=== PATIENT | female | born 1960 | race Caucasian/White ===

== ENCOUNTER 2019-10-11 10:01 | Inpatient (IN) | payer MEDICARE, OTHER ==
[2019-10-12 14:18] VITALS: BP 148/75
--- NOTE | 2019-10-12 14:33 | History & Physical ---
ADMIT DATE: 10/12/2019 CHIEF COMPLAINT: Suicidal ideations. HISTORY OF PRESENT ILLNESS: We have a 59-year-old female with diabetes, hypertension, who was transferred from outside hospital for suicidal ideations. No nausea, vomiting, abdominal pain, or diarrhea. No rectal bleeding or melena. PAST MEDICAL HISTORY: Diabetes, hypertension. PAST SURGICAL HISTORY: None. MEDICATIONS: List reviewed. ALLERGIES: None. SOCIAL HISTORY: Tobacco, IV drugs, ETOH negative. PHYSICAL EXAMINATION: VITAL SIGNS: Temperature is 98.6, ____ and blood pressure 148/75. HEENT: Normocephalic and atraumatic head exam. NECK: Supple. CARDIOVASCULAR: Regular rate and rhythm. LUNGS: Decreased breath sounds. ABDOMEN: Soft, nontender. EXTREMITIES: No edema, cyanosis or clubbing. ASSESSMENT: 1. Suicidal ideations. 2. Diabetes. 3. Hypertension. PLAN: The patient will be continued on diabetic meds. We will continue with supportive care. [facility]# [id number]
[2019-10-12] MEDS: Oxybutynin Chloride 5 mg ER Tab PO SCH (17:30)
[2019-10-13] MEDS: Oxybutynin Chloride 5 mg ER Tab PO SCH ×2 (09:01→17:13)
--- NOTE | 2019-10-13 09:30 | Psychiatric Evaluation ---
DATE OF SERVICE: 10/12/2019 IDENTIFYING DATA: The patient is a 59-year-old woman living with her family. Information obtained by directly interviewing the patient as well as reviewing the admission papers. JUSTIFICATION OF HOSPITALIZATION: The patient is admitted here on a 5150 as being gravely disabled. CHIEF COMPLAINT: "I don't like it here. I need to go home." HISTORY OF PRESENT ILLNESS: This is the first psychiatric hospitalization to this patient who was brought to the Emergency Room at [facility] where the patient has been presenting with acute psychosis such as being and her is in her body and the patient also has been making nonsensical statements and stating that her is possibly the president and she has been investigating. The patient's coping skills at this time are noted to be very poor. The patient prior to the hospitalization is reported to be followed up by a psychiatrist in [place] and is on Abilify. The patient is stating that she has not been taking the medications on a regular basis. Sleep is noted to be poor. Appetite is noted to be fair. PAST PSYCHIATRIC HISTORY: The patient is very guarded and is not giving much of information. MEDICAL HISTORY AND PHYSICAL EXAMINATION: Requested by Dr. Dumont. The patient possibly is diabetic and is on metformin and the patient is morbidly obese. PHYSICAL OR SEXUAL ABUSE HISTORY: None. LEGAL PROBLEMS: None at this time. STRENGTH AND ASSETS: The patient seems to be superficially cooperative and not motivated to get the treatment that she needs. The patient's insight is noted to be very limited at this time. Judgment is also noted to be very poor. MENTAL STATUS EXAMINATION: The patient is a 59-year-old woman, obese, superficially cooperative, lying down in the bed. Eye contact is noted to be poor. Mood is noted to be irritable. Affect is constricted. Mood swings are noted at this time. Speech is noted to be coherent and relevant. The patient has both paranoid as well as grandiose delusions. The patient thinks her is the president and she has been investigating him. The patient is also thinking that she is and her is in her abdomen. The patient is not making much sense. The patient is, however, alert and oriented to time, place, person and situation. Attention span is noted to be fair. Motor activity is noted to be appropriate. Concentration is noted to be fair. However, the patient's short and long-term memory are noted to be fair, but the patient is very guarded and reluctant to give the details of information. The patient at this time is not able to care for self. The patient is denying any suicidal or homicidal ideations. The patient is not ready to be discharged to a lower level of care. DIAGNOSTIC IMPRESSION: AXIS I: Bipolar disorder, mixed, with psychotic symptoms, rule out schizoaffective disorder. AXIS II: None. AXIS III: As per Dr. Dumont. IMMEDIATE TREATMENT PLAN: The patient is going to be restarted on the Abilify that she has been taking outside. The patient is going to be closely monitored. Once stabilized, the patient is going to be discharged to [facility] to be followed up on an outpatient basis. ESTIMATED LENGTH OF STAY: 3-5 days. DISCHARGE CRITERIA: When the patient is no longer a threat to self or others and be able to cope up with the stress. JOB# [id number]
[2019-10-14] MEDS: Oxybutynin Chloride 5 mg ER Tab PO SCH ×2 (09:04→16:00)
--- NOTE | 2019-10-14 09:52 | Progress Notes ---
DATE: 10/14/2019 SUBJECTIVE: Staff was spoken to. The patient is interviewed. Mood is noted to be irritable. Affect is constricted. Coping skills are noted to be extremely poor. The patient's insight and judgment are also noted to be very much impaired. The patient has been reluctant to take the medication. The patient is dropping the medication on the floor. The patient is very argumentative. ASSESSMENT: The patient is still psychotic and not able to contract for safety. PLAN: To continue the patient with the current medications and follow up. JOB# [id number]
[2019-10-15] MEDS: Oxybutynin Chloride 5 mg ER Tab PO SCH ×2 (08:24→17:04)
--- NOTE | 2019-10-15 14:43 | Progress Notes ---
DATE: 10/15/2019 SUBJECTIVE: Staff was spoken to. The patient is interviewed. Mood is noted to be irritable. Affect is constricted. Insight and judgment are noted to be still impaired. Impulse control is noted to be limited. Coping skills are noted to be limited. The patient is stating that this is her business and she does not want to talk anything about where she is going to go. She states that she has her own place and she does not need to be in here. Very aggressive and impulsive. The patient is noncompliant with the medication. The patient is noted to be very suspicious and has been questioning every medication that is going to be given to her. ASSESSMENT: The patient is still very paranoid. PLAN: To continue the patient with the current medications and follow. JOB# [id number]
--- NOTE | 2019-10-16 05:12 | Consultation ---
DATE OF CONSULTATION: 10/13/2019 HISTORY OF PRESENT ILLNESS: The patient is a 59-year-old female. The following is by review of the medical record as well as by the patient's self-report. Record review indicates that the patient had been living with her family and is being admitted on a 5150 hold as being gravely disabled. The patient initially was brought to the Emergency Room at [facility] presenting with psychosis. The patient was stating that she is and that her is in her body somehow. The patient was not making much sense during the clinical interview. There is some evidence of paranoid ideation. The patient feels that the is investigating her and has something to do with the federal government and the video game repair technician. The patient upon interview states that she needs to go home and that she does not need to be in the hospital. The patient states that she is not taking any medications and that her sleep is poor. The patient was unable to verbally contract for safety and is a poor historian. PAST MEDICAL HISTORY: Please see history and physical by Dr. Duomnt. PAST PSYCHIATRIC HISTORY: Record review indicates that the patient is being seen by a psychiatrist in [place] and is currently on Abilify. The patient has had a previous hospitalization, according to the patient. SUBSTANCE ABUSE HISTORY: The patient denied any history of alcohol, tobacco, illicit or recreational drug use. PSYCHOSOCIAL HISTORY: The patient lives with her family. The patient states that she is , but did not answer questions about having any children. The patient did not answer questions about occupational or educational history. The patient denied any history of physical or sexual abuse and any current legal problems. The patient states that her sister, Jania, and brother, Jayjay, are involved in her care. The patient states no specific jehovah's witness affiliation. The patient is demanding to return home. MENTAL STATUS EXAMINATION: The patient appears to be her stated age. Attitude is superficially cooperative. Eye contact is poor. Speech is coherent. The patient's thought process is markedly tangential and includes both paranoid ideation as well as grandiose delusions. The patient states that she feels she is and that her is investigating her because he is involved with the [employer]. The patient did not answer questions about having any homicidal or suicidal ideation, plan or intention. The patient's behavior is withdrawn, but guarded and mostly nondisclosing. Impulse control is poor and inadequate. The patient did not participate in the memory assessment. Immediate and short term memory appeared to be impaired due to psychotic process. Long-term memory needs further evaluation. Sensorium is alert and oriented to self and place only. The patient did not participate in the interpretation of proverbs. Insight is impaired. Judgment is impaired. DIAGNOSTIC IMPRESSION: AXIS I: Bipolar disorder, mixed, with psychotic symptoms. AXIS II: Deferred. AXIS III: Per Dr. Dumont. TREATMENT PLAN: The patient has been seen by Dr. Curiel for psychiatric evaluation and for the management of the patient's psychotropic medications. The patient is being restarted on Abilify according to the attending psychiatrist. The patient will be closely monitored. We will provide reality orientation, differentiation and integration. We will encourage the patient and provide motivational enhancement for the patient to become compliant and stay compliant with all aspects of her care and treatment. We will provide coping strategies for phase of life issues as well. We will encourage the patient to verbally contract for safety. We will follow up in 2-3 days if the patient remains on the unit and is able to demonstrate the capacity to benefit from psychology services. Thank you, Dr. Curiel for this consult and the opportunity to participate with you in this patient's care. JOB# [id number] NICOLE
[2019-10-16] MEDS: Oxybutynin Chloride 5 mg ER Tab PO SCH ×2 (08:45→16:37)
--- NOTE | 2019-10-16 10:44 | Progress Notes ---
DATE: 10/15/2019 PSYCHOLOGY PROGRESS NOTE SUBJECTIVE: The patient is seen and is interviewed. Case is discussed with staff. The patient presents as easily agitated and guarded. The patient states that she does not want to talk about anything and that she needs to be discharged. Staff reports the patient has been aggressive and impulsive as well as noncompliant with medication. OBJECTIVE: Mood is irritable. Affect is constricted. Thought process shows to be confused along with paranoid ideation. The patient is suspicious and is questioning the medication once staff brings it. Impulse control is inadequate, and the patient is easily agitated. ASSESSMENT: The patient's paranoid ideation persists as well as poor impulse control. PLAN: We provided cognitive and behavioral redirection. We provided remotivation for the patient to become compliant and stay compliant with all aspects of her care and treatment. We provided de-escalation as well as stress management to assist the patient to increase her frustration tolerance and to be able to respond to staff direction appropriately. We provided the opportunity for the patient to verbally contract for safety, i.e., no self-harm and no harm to others. We provided coping strategies for phase of life issues as well. We will follow up in 2-3 days to continue the present treatment if the patient remains on the unit and is able to demonstrate capacity to benefit from psychology services and is willing to participate. [facility]# [id number] NICOLE
--- NOTE | 2019-10-16 14:46 | Internal Medicine Prog Note ---
Internal Medicine Subjective - Subjective Service Date: 10/16/19 Patient seen and examined:: without staff Patient is:: awake, verbal, interactive Per staff patient has:: no adverse event, no episodes of fall Internal Medicine Objective - Results Recent Labs: Laboratory Last Values POC Glucose 116 MG/DL (70 - 105) H 10/12/19 21:27 - Physical Exam Vitals and I&O: Vital Signs Temp 97.8 F 10/16/19 05:30 Pulse 82 10/16/19 05:30 Resp 17 10/16/19 08:00 BP 124/60 10/16/19 05:30 Pulse Ox 97 10/16/19 05:30 Intake & Output 10/15/19 10/16/19 10/16/19 18:59 06:59 18:59 Intake Total 760 240 Balance 760 240 Intake: Oral 640 240 Other 120 Other: # Voids 3 2 # Bowel Movements 0 Active Medications: Current Medications Aripiprazole (Abilify) 15 mg PO HS [facility]; Protocol Stop: 12/15/19 20:59 Divalproex Sodium (Depakote Dr) 250 mg PO BID [facility]; Protocol Stop: 12/15/19 08:59 Ibuprofen (Motrin) 800 mg PO DAILY [facility] Stop: 12/16/19 08:59 Loratadine (Claritin) 5 mg PO BID [facility] Stop: 12/11/19 16:59 Last Admin: 10/16/19 08:45 Dose: Not Given Ondansetron HCl (Zofran Odt) 4 mg PO Q4H PRN PRN Reason: Nausea / Vomiting Stop: 12/14/19 16:39 Last Admin: 10/15/19 17:06 Dose: 4 mg Oxybutynin Chloride (Ditropan Xl) 15 mg PO BID [facility] Stop: 12/11/19 16:59 Last Admin: 10/16/19 08:45 Dose: Not Given HEENT: NC/AT Neck: Supple Lungs: CTAB Cardiovascular: RRR, Normal S1, Normal S2 Abdomen: soft, non-tender Extremities: clear Internal Medicine Assmt/Plan - Assessment Assessment: 1. Acute psychosis 2. DM/HTN - Plan Plan: continue supportive care continue blood sugar checks d/w r.n.
--- NOTE | 2019-10-16 16:53 | Progress Notes ---
DATE: 10/16/2019 SUBJECTIVE: Staff was spoken to. The patient is interviewed. Mood is irritable. Affect is constricted. The patient's insight and judgment at this time are noted to be very much impaired. Impulse control is noted to be poor. The patient has been testing the limits. The patient has no insight into her illness. The patient is very angry and upset. The patient is stating that she needs to leave right away. The patient is stating that she has been trying to get in touch with her family and that they are going to be coming in here to pick her up. The patient is stating that she did not get a chance to use the phone ____. I told her that she can use the hospital phone to contact the family, but the patient is very reluctant. She states that she needs to have her phone only to do that. The patient has no insight into her illness. The patient has been having acute mood swings. In view of this one, I have decided to increase the dose on the Abilify to 15 mg and add the Depakote 250 mg twice a day, and monitor the patient closely. JOB# [id number]
[2019-10-17] MEDS: Multivitamin Tab PO SCH (09:22)
[2019-10-17] MEDS: Oxybutynin Chloride 5 mg ER Tab PO SCH ×2 (09:23→16:53)
--- NOTE | 2019-10-17 17:19 | Internal Medicine Prog Note ---
Internal Medicine Subjective - Subjective Service Date: 10/17/19 Patient seen and examined:: without staff Patient is:: awake, verbal, interactive Per staff patient has:: no adverse event, no episodes of fall Internal Medicine Objective - Results Recent Labs: Laboratory Last Values POC Glucose 116 MG/DL (70 - 105) H 10/12/19 21:27 - Physical Exam Vitals and I&O: Vital Signs Temp 98.5 F 10/17/19 14:00 Pulse 77 10/17/19 14:00 Resp 20 10/17/19 14:00 BP 106/46 10/17/19 14:00 Pulse Ox 98 10/17/19 14:00 Intake & Output 10/16/19 10/17/19 10/17/19 18:59 06:59 18:59 Intake Total 900 120 Balance 900 120 Intake: Oral 900 120 Other: # Voids 3 3 # Bowel Movements 1 0 Active Medications: Current Medications Aripiprazole (Abilify) 15 mg PO HS [facility]; Protocol Stop: 12/15/19 20:59 Last Admin: 10/16/19 20:33 Dose: Not Given Divalproex Sodium (Depakote Dr) 250 mg PO BID [facility]; Protocol Stop: 12/15/19 08:59 Last Admin: 10/17/19 16:54 Dose: Not Given Ibuprofen (Motrin) 800 mg PO DAILY [facility] Stop: 12/16/19 08:59 Last Admin: 10/17/19 09:22 Dose: 800 mg Loratadine (Claritin) 5 mg PO BID [facility] Stop: 12/11/19 16:59 Last Admin: 10/17/19 16:54 Dose: 5 mg Lorazepam (Ativan) 0.5 mg PO Q4HR PRN; Protocol PRN Reason: Agitation Stop: 12/15/19 16:52 Multivitamins/Vitamin C (Theragran) 1 tab PO DAILY [facility] Stop: 12/16/19 08:59 Last Admin: 10/17/19 09:22 Dose: 1 tab Ondansetron HCl (Zofran Odt) 4 mg PO Q4H PRN PRN Reason: Nausea / Vomiting Stop: 12/14/19 16:39 Last Admin: 10/16/19 19:53 Dose: 4 mg Oxybutynin Chloride (Ditropan Xl) 15 mg PO BID [facility] Stop: 12/11/19 16:59 Last Admin: 10/17/19 16:53 Dose: 15 mg HEENT: NC/AT Neck: Supple Lungs: CTAB Cardiovascular: RRR, Normal S1, Normal S2 Abdomen: soft, non-tender Extremities: clear Internal Medicine Assmt/Plan - Assessment Assessment: 1. Acute psychosis 2. DM/HTN - Plan Plan: continue supportive care continue blood sugar checks continue BP checks Nutritional Asmnt/Malnutr-PDOC - Dietary Evaluation Malnutrition Findings (Please click <Entered> for more info): Nutritional Asmnt/Malnutrition Start: 10/16/19 15: 51 Text: Status: Complete Freq: Protocol: Document 10/16/19 15:52 DEBORAH (Rec: 10/16/19 15:56 DEBORAH [id number]) Nutritional Asmnt/Malnutrition Patient General Information Nutritional Screening Moderate Risk Diagnosis Psychosis Pertinent Medical Hx/Surgical Hx HTN, DM Subjective Information Pt is a 59-year-old female admitted from home (living with family) on 10/11 d/t suicidal ideations. Pt is eating an estimated 33% of meals since admit date (x4 days) Per Meal/Nutrition Activity Record. Dietary is currently providing an estimated 1900 kcals and 110 gm Pro, per Pt PO intake this is providing an estimated 630 kcals and 36gm Pro to meet 53% kcal and 72% Pro needs- inadequate. Pt has noted refusal of medications and food, will continue to monitor PO intake. Visited pt around 3:30pm, pt was awake in room. When asked about her appetite she stated she was having nausea and stomach pain before , but now she is OK. I let her know ideally, she could lose some weight, but we want it to just be gradual to keep her healthy and she agreed. Pt stated since she was feeling better she would like to eat as she did not eat her lunch today. I got her a late lunch tray and explained I would be recommending a multivitamin for her, she stated she would take it when it came with her medications. Recommend adding multivitamin to medication regimen d/t chronic lack of nutrient dense food consumption contributing to morbid obesity. Spoke with pt nurse Shakira regarding recommendation. Anthropometrics HT: 5 Ft WT: 245 LB (110 kg) ABW: 136 LB (61.93 kg) BMI: 47.90 (Obese, class III) GI/ Skin Integrity GI: WNL, Soft, Non-tender BM: 10/12 x1 I/O: 1000/Not Noted Skin: WNL, Intact Enrique: 17 Diet Order: Cardiac Estimated Energy Needs: (Obese , ABW) 0818-3032 kcals (20-25 kcals/ kg) 50-60g Pro (0.8-1.0 g/kg) 8495-2371 ml (20-25 ml/kg) Current Diet Order/ Nutrition Support Cardiac Pertinent Medications Zofran Odt (PRN) Pertinent Labs 10/11: Glucose 126, 116 Nutritional Hx/Data Height 1.52 m Height (Calculated Centimeters) 152.4 Current Weight (lbs) 111.13 kg Weight (Calculated Kilograms) 111.1 Weight (Calculated Grams) 556388.1 [place] Body Weight 100 LB (45.45 kg) % [place] Body Weight 245 Body Mass Index (BMI) 47.8 Weight Status Morbidly Obese GI Symptoms Last BM 10/12 x1 Skin Integrity/Comment: Skin: WNL, Intact Enrique: 17 Current %PO Poor (25-49%) Estimated Nutritional Goals BEE in Kcals: Adj wt of IBW Calories/Kcals/Kg 20-25 Kcals Calculated 1444-9589 Protein: Adj wt of IBW Protein g/k.8-1.0 Protein Calculated 50-60 Fluid: ml 8728-6659 ml (20-25 ml/kg) Nutritional Problem 1. Problem Problem Obesity Etiology r/t consistent energy overconsumption Signs/Symptoms: aeb BMI >40 (47.09), Obese class III. Malnutrition Related to Morbid Obesity Malnutrition related to morbid obesity Weight 200% of ideal wt Query Text:(Any 1 Criteria met) Malnutrition related to morbid obesity Yes Intervention/Recommendation Comments 1.Continue Cardiac diet as tolerated. 2.Recommend adding multivitamin to medication regimen. Expected Outcomes/Goals Expected Outcomes/Goals 1.PO intake to meet 75% of estimated nutritional needs. 2.Gradual weight loss 90.5-1.0 Lb/week) trending toward IBW preferred. 3.Monitor PO intake, wt, nutrition related labs, and skin integrity. 4.F/U as low risk in 7-10 days , 10/22-10/25.
--- NOTE | 2019-10-17 19:15 | Progress Notes ---
DATE: 10/17/2019 SUBJECTIVE: Staff was spoken to. The patient is interviewed. Mood is noted to be irritable. Affect is constricted. Insight and judgment at this time are noted to be still impaired. Impulse control is noted to be limited. Coping skills are noted to be limited. The patient has been having difficult time to cope with the stress. The patient is still very paranoid and is insisting to have her way. The patient is refusing to get the family involved. The patient is stating that she does not have the number we need to get her phone. She is going to be calling the family only with her phone. ASSESSMENT: The patient is still impulsive and paranoid. PLAN: To continue the patient with the current medications and request the staff to contact the family. JOB# [id number]
[2019-10-18] MEDS: Multivitamin Tab PO SCH (09:22)
[2019-10-18] MEDS: Oxybutynin Chloride 5 mg ER Tab PO SCH ×2 (09:23→16:17)
--- NOTE | 2019-10-18 13:46 | Progress Notes ---
DATE: 10/18/2019 PSYCHIATRIC PROGRESS NOTE SUBJECTIVE: Staff was spoken to. The patient is interviewed. Mood is noted to be irritable and angry. Affect is constricted. Insight and judgment at this time are noted to be still impaired. Impulse control is noted to be poor. Coping skills are noted to be poor. The patient has been having difficult time to cope with the stress. On one hand, the patient is stating that she has her and he is in her tummy and the patient is reported to be not and does not have any family. The patient is in need of placement at this time. The patient continues to be grossly psychotic and is not able to contract for safety. PLAN: To continue the patient with the current medications. I encouraged the patient to verbalize the concerns rather than to act out. JOB# [id number]
[2019-10-18] MEDS ORDERED: GLUCAGON HCl 1 MG KIT IM PRN (15:30)
--- NOTE | 2019-10-18 15:31 | Internal Medicine Prog Note ---
Internal Medicine Subjective - Subjective Service Date: 10/18/19 Patient seen and examined:: without staff Patient is:: awake, verbal, interactive Per staff patient has:: no adverse event, no episodes of fall Internal Medicine Objective - Results Recent Labs: Laboratory Last Values POC Glucose 116 MG/DL (70 - 105) H 10/12/19 21:27 - Physical Exam Vitals and I&O: Vital Signs Temp 98.7 F 10/18/19 14:00 Pulse 91 10/18/19 14:00 Resp 20 10/18/19 14:00 BP 124/64 10/18/19 14:00 Pulse Ox 99 10/18/19 14:00 Intake & Output 10/17/19 10/18/19 10/18/19 18:59 06:59 18:59 Intake Total 800 Balance 800 Intake: Oral 800 Other: # Voids 3 # Bowel Movements 1 Active Medications: Current Medications Aripiprazole (Abilify) 15 mg PO HS [facility]; Protocol Stop: 12/15/19 20:59 Last Admin: 10/17/19 20:52 Dose: Not Given Divalproex Sodium (Depakote Dr) 250 mg PO BID [facility]; Protocol Stop: 12/15/19 08:59 Last Admin: 10/18/19 09:21 Dose: Not Given Ibuprofen (Motrin) 800 mg PO DAILY [facility] Stop: 12/16/19 08:59 Last Admin: 10/18/19 09:22 Dose: Not Given Loratadine (Claritin) 5 mg PO BID [facility] Stop: 12/11/19 16:59 Last Admin: 10/18/19 09:22 Dose: Not Given Lorazepam (Ativan) 0.5 mg PO Q4HR PRN; Protocol PRN Reason: Agitation Stop: 12/15/19 16:52 Multivitamins/Vitamin C (Theragran) 1 tab PO DAILY [facility] Stop: 12/16/19 08:59 Last Admin: 10/18/19 09:22 Dose: 1 tab Ondansetron HCl (Zofran Odt) 4 mg PO Q4H PRN PRN Reason: Nausea / Vomiting Stop: 12/14/19 16:39 Last Admin: 10/16/19 19:53 Dose: 4 mg Oxybutynin Chloride (Ditropan Xl) 15 mg PO BID [facility] Stop: 12/11/19 16:59 Last Admin: 10/18/19 09:23 Dose: 15 mg HEENT: NC/AT Neck: Supple Lungs: CTAB Cardiovascular: RRR, Normal S1, Normal S2 Abdomen: soft, non-tender Extremities: clear Neurological: no change Internal Medicine Assmt/Plan - Assessment Assessment: 1. Acute psychosis 2. DM/HTN - Plan Plan: continue supportive care continue blood sugar checks continue BP checks d/w r.n. Nutritional Asmnt/Malnutr-PDOC - Dietary Evaluation Malnutrition Findings (Please click <Entered> for more info): Nutritional Asmnt/Malnutrition Start: 10/16/19 15: 51 Text: Status: Complete Freq: Protocol: Document 10/16/19 15:52 DEBORAH (Rec: 10/16/19 15:56 DEBORAH [id number]) Nutritional Asmnt/Malnutrition Patient General Information Nutritional Screening Moderate Risk Diagnosis Psychosis Pertinent Medical Hx/Surgical Hx HTN, DM Subjective Information Pt is a 59-year-old female admitted from home (living with family) on 10/11 d/t suicidal ideations. Pt is eating an estimated 33% of meals since admit date (x4 days) Per Meal/Nutrition Activity Record. Dietary is currently providing an estimated 1900 kcals and 110 gm Pro, per Pt PO intake this is providing an estimated 630 kcals and 36gm Pro to meet 53% kcal and 72% Pro needs- inadequate. Pt has noted refusal of medications and food, will continue to monitor PO intake. Visited pt around 3:30pm, pt was awake in room. When asked about her appetite she stated she was having nausea and stomach pain before , but now she is OK. I let her know ideally, she could lose some weight, but we want it to just be gradual to keep her healthy and she agreed. Pt stated since she was feeling better she would like to eat as she did not eat her lunch today. I got her a late lunch tray and explained I would be recommending a multivitamin for her, she stated she would take it when it came with her medications. Recommend adding multivitamin to medication regimen d/t chronic lack of nutrient dense food consumption contributing to morbid obesity. Spoke with pt nurse Shakira regarding recommendation. Anthropometrics HT: 5 Ft WT: 245 LB (110 kg) ABW: 136 LB (61.93 kg) BMI: 47.90 (Obese, class III) GI/ Skin Integrity GI: WNL, Soft, Non-tender BM: 10/12 x1 I/O: 1000/Not Noted Skin: WNL, Intact Enrique: 17 Diet Order: Cardiac Estimated Energy Needs: (Obese , ABW) 9268-9320 kcals (20-25 kcals/ kg) 50-60g Pro (0.8-1.0 g/kg) 6605-2408 ml (20-25 ml/kg) Current Diet Order/ Nutrition Support Cardiac Pertinent Medications Zofran Odt (PRN) Pertinent Labs 10/11: Glucose 126, 116 Nutritional Hx/Data Height 1.52 m Height (Calculated Centimeters) 152.4 Current Weight (lbs) 111.13 kg Weight (Calculated Kilograms) 111.1 Weight (Calculated Grams) 877432.1 [place] Body Weight 100 LB (45.45 kg) % [place] Body Weight 245 Body Mass Index (BMI) 47.8 Weight Status Morbidly Obese GI Symptoms Last BM 10/12 x1 Skin Integrity/Comment: Skin: WNL, Intact Enrique: 17 Current %PO Poor (25-49%) Estimated Nutritional Goals BEE in Kcals: Adj wt of IBW Calories/Kcals/Kg 20-25 Kcals Calculated 6875-6747 Protein: Adj wt of IBW Protein g/k.8-1.0 Protein Calculated 50-60 Fluid: ml 1446-4504 ml (20-25 ml/kg) Nutritional Problem 1. Problem Problem Obesity Etiology r/t consistent energy overconsumption Signs/Symptoms: aeb BMI >40 (47.09), Obese class III. Malnutrition Related to Morbid Obesity Malnutrition related to morbid obesity Weight 200% of ideal wt Query Text:(Any 1 Criteria met) Malnutrition related to morbid obesity Yes Intervention/Recommendation Comments 1.Continue Cardiac diet as tolerated. 2.Recommend adding multivitamin to medication regimen. Expected Outcomes/Goals Expected Outcomes/Goals 1.PO intake to meet 75% of estimated nutritional needs. 2.Gradual weight loss 90.5-1.0 Lb/week) trending toward IBW preferred. 3.Monitor PO intake, wt, nutrition related labs, and skin integrity. 4.F/U as low risk in 7-10 days , /-10/25.
[2019-10-18] MEDS: INSULIN LISPRO SLIDING SCALE 100 UNITS/ML UNIT SUBQ SCH ×2 (16:59→21:24)
--- NOTE | 2019-10-18 17:11 | Progress Notes ---
DATE: 10/17/2019 PSYCHOLOGY PROGRESS NOTE SUBJECTIVE: The patient is seen in her room and is interviewed. Case has been discussed with staff. The patient presents as less agitated and less irritable this visit. The staff reports the patient is still having a difficult time coping and is demanding. There is some evidence of paranoia. When asked how long the patient has been , she said many, many years since I was [age] years old. The patient continues to have difficulty following through with staff direction. OBJECTIVE: Mood is less irritable. Affect is mood congruent. Thought process is confused and includes paranoid ideation as well as delusional content. The patient denied any suicidal ideation, plan or intention. The patient continues to insist on having her own way and is difficult to redirect. ASSESSMENT: Impulsivity and paranoia persist. PLAN: The patient is continued on current medications according to the attending psychiatrist. We provided reality orientation, differentiation and integration. We provided remotivation for the patient to become compliant and stay compliant with all aspects of her care and treatment. We provided coping strategies for phase of life issues. We encouraged the patient to reach out to her family for support. Apparently, the patient had been refusing to involve her family in her care. We will follow up in 2-3 days to continue the current treatment if the patient remains on the unit. JOB# [id number] NICOLE
[2019-10-19] MEDS: INSULIN LISPRO SLIDING SCALE 100 UNITS/ML UNIT SUBQ SCH ×4 (06:31→20:31)
[2019-10-19] MEDS: Oxybutynin Chloride 5 mg ER Tab PO SCH ×2 (09:49→17:33)
[2019-10-19] MEDS: Multivitamin Tab PO SCH (09:49)
--- NOTE | 2019-10-19 15:19 | Progress Notes ---
DATE: 10/19/2019 PSYCHIATRIC PROGRESS NOTE SUBJECTIVE: Staff was spoken to. The patient is interviewed. Mood is noted to be irritable. Affect is constricted. The patient's insight and judgment are noted to be still impaired. The patient is refusing to take the Depakote, stating that the medication is going to be making her to lose her hair. The patient has no place to return to. The patient is isolative and withdrawn. wind operations manager has been trying to work with the patient to see if they can help her with the placement, but the patient is very resistive. JOB# [id number]
--- NOTE | 2019-10-19 15:55 | Internal Medicine Prog Note ---
Internal Medicine Subjective - Subjective Service Date: 10/19/19 Patient seen and examined:: without staff Patient is:: awake, verbal, interactive Per staff patient has:: no adverse event, no episodes of fall Internal Medicine Objective - Results Recent Labs: Laboratory Last Values POC Glucose 129 MG/DL (70 - 105) H 10/19/19 12:00 - Physical Exam Vitals and I&O: Vital Signs Temp 97.5 F 10/19/19 14:00 Pulse 84 10/19/19 14:00 Resp 20 10/19/19 14:00 BP 118/72 10/19/19 14:00 Pulse Ox 95 10/19/19 14:00 Intake & Output 10/18/19 10/19/19 10/19/19 18:59 06:59 18:59 Intake Total 1200 120 Balance 1200 120 Intake: Oral 1200 120 Other: # Voids 2 # Bowel Movements 1 Active Medications: Current Medications Aripiprazole (Abilify) 15 mg PO HS [facility]; Protocol Stop: 12/15/19 20:59 Last Admin: 10/18/19 21:24 Dose: 15 mg Dextrose (Glutose 40%) 18.75 gm PO PRN PRN PRN Reason: BS Below 70 if tolerate po Stop: 12/17/19 15:29 Divalproex Sodium (Depakote Dr) 250 mg PO BID [facility]; Protocol Stop: 12/15/19 08:59 Last Admin: 10/19/19 09:49 Dose: Not Given Glucagon (Glucagen) 1 mg IM PRN PRN PRN Reason: BS Below 70 if not tolerate po Stop: 12/17/19 15:29 Ibuprofen (Motrin) 800 mg PO DAILY [facility] Stop: 12/16/19 08:59 Last Admin: 10/19/19 09:53 Dose: Not Given Insulin Human Lispro (Humalog Insulin Sliding Scale) 0 units SUBQ ACHS [facility]; Protocol Stop: 12/17/19 16:29 Last Admin: 10/19/19 12:20 Dose: Not Given Loratadine (Claritin) 5 mg PO BID [facility] Stop: 12/11/19 16:59 Last Admin: 10/19/19 09:53 Dose: Not Given Lorazepam (Ativan) 0.5 mg PO Q4HR PRN; Protocol PRN Reason: Agitation Stop: 12/15/19 16:52 Multivitamins/Vitamin C (Theragran) 1 tab PO DAILY [facility] Stop: 12/16/19 08:59 Last Admin: 10/19/19 09:49 Dose: Not Given Ondansetron HCl (Zofran Odt) 4 mg PO Q4H PRN PRN Reason: Nausea / Vomiting Stop: 12/14/19 16:39 Last Admin: 10/16/19 19:53 Dose: 4 mg Oxybutynin Chloride (Ditropan Xl) 15 mg PO BID [facility] Stop: 12/11/19 16:59 Last Admin: 10/19/19 09:49 Dose: Not Given HEENT: NC/AT Neck: Supple Lungs: CTAB Cardiovascular: RRR, Normal S1, Normal S2 Abdomen: soft, non-tender Extremities: clear Neurological: no change Internal Medicine Assmt/Plan - Assessment Assessment: 1. Acute psychosis 2. DM/HTN - Plan Plan: continue supportive care continue blood sugar checks continue BP checks d/w r.n. Nutritional Asmnt/Malnutr-PDOC - Dietary Evaluation Malnutrition Findings (Please click <Entered> for more info): Nutritional Asmnt/Malnutrition Start: 10/16/19 15: 51 Text: Status: Complete Freq: Protocol: Document 10/16/19 15:52 DEBORAH (Rec: 10/16/19 15:56 DEBORAH [id number]) Nutritional Asmnt/Malnutrition Patient General Information Nutritional Screening Moderate Risk Diagnosis Psychosis Pertinent Medical Hx/Surgical Hx HTN, DM Subjective Information Pt is a 59-year-old female admitted from home (living with family) on 10/11 d/t suicidal ideations. Pt is eating an estimated 33% of meals since admit date (x4 days) Per Meal/Nutrition Activity Record. Dietary is currently providing an estimated 1900 kcals and 110 gm Pro, per Pt PO intake this is providing an estimated 630 kcals and 36gm Pro to meet 53% kcal and 72% Pro needs- inadequate. Pt has noted refusal of medications and food, will continue to monitor PO intake. Visited pt around 3:30pm, pt was awake in room. When asked about her appetite she stated she was having nausea and stomach pain before , but now she is OK. I let her know ideally, she could lose some weight, but we want it to just be gradual to keep her healthy and she agreed. Pt stated since she was feeling better she would like to eat as she did not eat her lunch today. I got her a late lunch tray and explained I would be recommending a multivitamin for her, she stated she would take it when it came with her medications. Recommend adding multivitamin to medication regimen d/t chronic lack of nutrient dense food consumption contributing to morbid obesity. Spoke with pt nurse Shakira regarding recommendation. Anthropometrics HT: 5 Ft WT: 245 LB (110 kg) ABW: 136 LB (61.93 kg) BMI: 47.90 (Obese, class III) GI/ Skin Integrity GI: WNL, Soft, Non-tender BM: 10/12 x1 I/O: 1000/Not Noted Skin: WNL, Intact Enrique: 17 Diet Order: Cardiac Estimated Energy Needs: (Obese , ABW) 1008-3398 kcals (20-25 kcals/ kg) 50-60g Pro (0.8-1.0 g/kg) 6203-7740 ml (20-25 ml/kg) Current Diet Order/ Nutrition Support Cardiac Pertinent Medications Zofran Odt (PRN) Pertinent Labs 10/11: Glucose 126, 116 Nutritional Hx/Data Height 1.52 m Height (Calculated Centimeters) 152.4 Current Weight (lbs) 111.13 kg Weight (Calculated Kilograms) 111.1 Weight (Calculated Grams) 411232.1 [place] Body Weight 100 LB (45.45 kg) % [place] Body Weight 245 Body Mass Index (BMI) 47.8 Weight Status Morbidly Obese GI Symptoms Last BM 10/12 x1 Skin Integrity/Comment: Skin: WNL, Intact Enrique: 17 Current %PO Poor (25-49%) Estimated Nutritional Goals BEE in Kcals: Adj wt of IBW Calories/Kcals/Kg 20-25 Kcals Calculated 3189-6383 Protein: Adj wt of IBW Protein g/k.8-1.0 Protein Calculated 50-60 Fluid: ml 9161-0777 ml (20-25 ml/kg) Nutritional Problem 1. Problem Problem Obesity Etiology r/t consistent energy overconsumption Signs/Symptoms: aeb BMI >40 (47.09), Obese class III. Malnutrition Related to Morbid Obesity Malnutrition related to morbid obesity Weight 200% of ideal wt Query Text:(Any 1 Criteria met) Malnutrition related to morbid obesity Yes Intervention/Recommendation Comments 1.Continue Cardiac diet as tolerated. 2.Recommend adding multivitamin to medication regimen. Expected Outcomes/Goals Expected Outcomes/Goals 1.PO intake to meet 75% of estimated nutritional needs. 2.Gradual weight loss 90.5-1.0 Lb/week) trending toward IBW preferred. 3.Monitor PO intake, wt, nutrition related labs, and skin integrity. 4.F/U as low risk in 7-10 days , 10/22-10/25.
[2019-10-20] MEDS: INSULIN LISPRO SLIDING SCALE 100 UNITS/ML UNIT SUBQ SCH ×4 (06:40→21:11)
[2019-10-20] MEDS: Multivitamin Tab PO SCH (08:29)
[2019-10-20] MEDS: Oxybutynin Chloride 5 mg ER Tab PO SCH ×2 (08:29→16:23)
--- NOTE | 2019-10-20 14:09 | Internal Medicine Prog Note ---
Internal Medicine Subjective - Subjective Service Date: 10/20/19 Patient seen and examined:: without staff Patient is:: awake, verbal, interactive Per staff patient has:: no adverse event, no episodes of fall Internal Medicine Objective - Results Recent Labs: Laboratory Last Values POC Glucose 134 MG/DL (70 - 105) H 10/20/19 11:00 - Physical Exam Vitals and I&O: Vital Signs Temp 98.0 F 10/20/19 05:55 Pulse 81 10/20/19 05:55 Resp 18 10/20/19 08:00 BP 131/60 10/20/19 05:55 Pulse Ox 97 10/20/19 05:55 Intake & Output 10/19/19 10/20/19 10/20/19 18:59 06:59 18:59 Intake Total 960 240 Balance 960 240 Intake: Oral 960 240 Other: # Voids 3 2 # Bowel Movements 0 Active Medications: Current Medications Aripiprazole (Abilify) 15 mg PO HS [facility]; Protocol Stop: 12/15/19 20:59 Last Admin: 10/19/19 20:31 Dose: 15 mg Dextrose (Glutose 40%) 18.75 gm PO PRN PRN PRN Reason: BS Below 70 if tolerate po Stop: 12/17/19 15:29 Divalproex Sodium (Depakote Dr) 250 mg PO BID [facility]; Protocol Stop: 12/15/19 08:59 Last Admin: 10/20/19 08:28 Dose: Not Given Glucagon (Glucagen) 1 mg IM PRN PRN PRN Reason: BS Below 70 if not tolerate po Stop: 12/17/19 15:29 Ibuprofen (Motrin) 800 mg PO DAILY [facility] Stop: 12/16/19 08:59 Last Admin: 10/20/19 08:27 Dose: 800 mg Insulin Human Lispro (Humalog Insulin Sliding Scale) 0 units SUBQ ACHS [facility]; Protocol Stop: 12/17/19 16:29 Last Admin: 10/20/19 11:09 Dose: Not Given Loratadine (Claritin) 5 mg PO BID [facility] Stop: 12/11/19 16:59 Last Admin: 10/20/19 08:28 Dose: 5 mg Lorazepam (Ativan) 0.5 mg PO Q4HR PRN; Protocol PRN Reason: Agitation Stop: 12/15/19 16:52 Multivitamins/Vitamin C (Theragran) 1 tab PO DAILY [facility] Stop: 12/16/19 08:59 Last Admin: 10/20/19 08:29 Dose: 1 tab Ondansetron HCl (Zofran Odt) 4 mg PO Q4H PRN PRN Reason: Nausea / Vomiting Stop: 12/14/19 16:39 Last Admin: 10/20/19 00:59 Dose: 4 mg Oxybutynin Chloride (Ditropan Xl) 15 mg PO BID [facility] Stop: 12/11/19 16:59 Last Admin: 10/20/19 08:29 Dose: 15 mg HEENT: NC/AT Neck: Supple Lungs: CTAB Cardiovascular: RRR, Normal S1, Normal S2 Abdomen: soft, non-tender Extremities: clear Neurological: no change Internal Medicine Assmt/Plan - Assessment Assessment: 1. Acute psychosis 2. DM/HTN - Plan Plan: continue supportive care continue blood sugar checks continue BP checks d/w r.n. Nutritional Asmnt/Malnutr-PDOC - Dietary Evaluation Malnutrition Findings (Please click <Entered> for more info): Nutritional Asmnt/Malnutrition Start: 10/16/19 15: 51 Text: Status: Complete Freq: Protocol: Document 10/16/19 15:52 DEBORAH (Rec: 10/16/19 15:56 DEBORAH [id number]) Nutritional Asmnt/Malnutrition Patient General Information Nutritional Screening Moderate Risk Diagnosis Psychosis Pertinent Medical Hx/Surgical Hx HTN, DM Subjective Information Pt is a 59-year-old female admitted from home (living with family) on 10/11 d/t suicidal ideations. Pt is eating an estimated 33% of meals since admit date (x4 days) Per Meal/Nutrition Activity Record. Dietary is currently providing an estimated 1900 kcals and 110 gm Pro, per Pt PO intake this is providing an estimated 630 kcals and 36gm Pro to meet 53% kcal and 72% Pro needs- inadequate. Pt has noted refusal of medications and food, will continue to monitor PO intake. Visited pt around 3:30pm, pt was awake in room. When asked about her appetite she stated she was having nausea and stomach pain before , but now she is OK. I let her know ideally, she could lose some weight, but we want it to just be gradual to keep her healthy and she agreed. Pt stated since she was feeling better she would like to eat as she did not eat her lunch today. I got her a late lunch tray and explained I would be recommending a multivitamin for her, she stated she would take it when it came with her medications. Recommend adding multivitamin to medication regimen d/t chronic lack of nutrient dense food consumption contributing to morbid obesity. Spoke with pt nurse Shakira regarding recommendation. Anthropometrics HT: 5 Ft WT: 245 LB (110 kg) ABW: 136 LB (61.93 kg) BMI: 47.90 (Obese, class III) GI/ Skin Integrity GI: WNL, Soft, Non-tender BM: 10/12 x1 I/O: 1000/Not Noted Skin: WNL, Intact Enrique: 17 Diet Order: Cardiac Estimated Energy Needs: (Obese , ABW) 4649-1656 kcals (20-25 kcals/ kg) 50-60g Pro (0.8-1.0 g/kg) 6106-9201 ml (20-25 ml/kg) Current Diet Order/ Nutrition Support Cardiac Pertinent Medications Zofran Odt (PRN) Pertinent Labs 10/11: Glucose 126, 116 Nutritional Hx/Data Height 1.52 m Height (Calculated Centimeters) 152.4 Current Weight (lbs) 111.13 kg Weight (Calculated Kilograms) 111.1 Weight (Calculated Grams) 055297.1 [place] Body Weight 100 LB (45.45 kg) % [place] Body Weight 245 Body Mass Index (BMI) 47.8 Weight Status Morbidly Obese GI Symptoms Last BM 10/12 x1 Skin Integrity/Comment: Skin: WNL, Intact Enrique: 17 Current %PO Poor (25-49%) Estimated Nutritional Goals BEE in Kcals: Adj wt of IBW Calories/Kcals/Kg 20-25 Kcals Calculated 3298-1120 Protein: Adj wt of IBW Protein g/k.8-1.0 Protein Calculated 50-60 Fluid: ml 1737-8143 ml (20-25 ml/kg) Nutritional Problem 1. Problem Problem Obesity Etiology r/t consistent energy overconsumption Signs/Symptoms: aeb BMI >40 (47.09), Obese class III. Malnutrition Related to Morbid Obesity Malnutrition related to morbid obesity Weight 200% of ideal wt Query Text:(Any 1 Criteria met) Malnutrition related to morbid obesity Yes Intervention/Recommendation Comments 1.Continue Cardiac diet as tolerated. 2.Recommend adding multivitamin to medication regimen. Expected Outcomes/Goals Expected Outcomes/Goals 1.PO intake to meet 75% of estimated nutritional needs. 2.Gradual weight loss 90.5-1.0 Lb/week) trending toward IBW preferred. 3.Monitor PO intake, wt, nutrition related labs, and skin integrity. 4.F/U as low risk in 7-10 days , 10/22-10/25.
--- NOTE | 2019-10-20 20:34 | Progress Notes ---
DATE: 10/20/2019 SUBJECTIVE: Staff was spoken to. The patient is interviewed. Mood is noted to be irritable. Affect is constricted. Coping skills are noted to be poor. The patient is stating that she has several houses to go to and she does not need any help. The patient is demanding that she needs to talk to the social media coordinator and needs to leave. The patient is refusing to take the Depakote, continues to be irritable and the mood swings are still concerns. PLAN: To continue the patient with the current medications. I encouraged her to comply with the Depakote. JOB# [id number]
[2019-10-21] MEDS: INSULIN LISPRO SLIDING SCALE 100 UNITS/ML UNIT SUBQ SCH ×4 (06:45→20:53)
[2019-10-21] MEDS: Multivitamin Tab PO SCH (10:00)
[2019-10-21] MEDS: Oxybutynin Chloride 5 mg ER Tab PO SCH ×2 (10:00→17:01)
--- NOTE | 2019-10-21 13:08 | Progress Notes ---
DATE: 10/20/2019 PSYCHOLOGY PROGRESS NOTE SUBJECTIVE: The patient is seen and interviewed. Case is discussed with staff. The patient is lying down in bed in her room. The patient is somnolent, but arousable verbally. The patient is reporting that she does not need to take the medication, does not need any help, and is demanding to go home. The patient states that she needs to speak with the social sciences instructor. Staff reports the patient refused medications this morning. OBJECTIVE: Mood is fluctuating and is irritable. Affect is mood congruent. Thought process includes suspiciousness as well as being guarded. The patient did not answer the questions about experiencing suicidal ideation, plan or intention. The patient has been withdrawn and isolative and resistive to care, i.e., refusing medications. ASSESSMENT: The patient's psychosis and care refusal persist. TREATMENT PLAN: The patient is continued on current medications according to the attending psychiatrist. We provided remotivation and encouragement for the patient to become compliant with all aspects of her care and treatment and to accept the current medication protocol. We will follow up in 2-3 days to continue the present treatment if the patient remains on the unit and is able to participate and demonstrate the capacity to benefit from psychology services. JOB# [id number] NICOLE
--- NOTE | 2019-10-21 13:22 | Progress Notes ---
DATE: 10/21/2019 PSYCHIATRIC PROGRESS NOTE SUBJECTIVE: Staff was spoken to. The patient is interviewed. Mood is noted to be irritable. Affect is constricted. The patient is isolative and withdrawn. The patient is stating that she does not need to be in here and film rental clerk told her that she can leave anytime. The patient has no insight into her illness. Coping skills are noted to be extremely poor. The patient has been reluctant to comply with the medication. ASSESSMENT: The patient is still psychotic. PLAN: To continue the patient with the supportive therapy and followup. JOB# [id number]
--- NOTE | 2019-10-21 13:29 | Internal Medicine Prog Note ---
Internal Medicine Subjective - Subjective Service Date: 10/21/19 (patient had one episode of nausea and vomiting, no abdominal pain) Patient seen and examined:: without staff Patient is:: awake, verbal, interactive Per staff patient has:: no adverse event, no episodes of fall Internal Medicine Objective - Results Recent Labs: Laboratory Last Values POC Glucose 106 MG/DL (70 - 105) H 10/20/19 16:28 - Physical Exam Vitals and I&O: Vital Signs Temp 97.8 F 10/20/19 20:12 Pulse 89 10/21/19 08:00 Resp 20 10/21/19 08:00 BP 128/69 10/21/19 08:00 Pulse Ox 97 10/21/19 08:00 Intake & Output 10/20/19 10/21/19 10/21/19 18:59 06:59 18:59 Intake Total 480 Balance 480 Intake: Oral 480 Other: # Voids 1 Active Medications: Current Medications Aripiprazole (Abilify) 15 mg PO HS [facility]; Protocol Stop: 12/15/19 20:59 Last Admin: 10/20/19 21:11 Dose: Not Given Dextrose (Glutose 40%) 18.75 gm PO PRN PRN PRN Reason: BS Below 70 if tolerate po Stop: 12/17/19 15:29 Divalproex Sodium (Depakote Dr) 250 mg PO BID [facility]; Protocol Stop: 12/15/19 08:59 Last Admin: 10/21/19 10:00 Dose: Not Given Glucagon (Glucagen) 1 mg IM PRN PRN PRN Reason: BS Below 70 if not tolerate po Stop: 12/17/19 15:29 Ibuprofen (Motrin) 800 mg PO DAILY [facility] Stop: 12/16/19 08:59 Last Admin: 10/21/19 10:00 Dose: Not Given Insulin Human Lispro (Humalog Insulin Sliding Scale) 0 units SUBQ ACHS [facility]; Protocol Stop: 12/17/19 16:29 Last Admin: 10/21/19 11:49 Dose: Not Given Loratadine (Claritin) 5 mg PO BID [facility] Stop: 12/11/19 16:59 Last Admin: 10/21/19 10:00 Dose: Not Given Lorazepam (Ativan) 0.5 mg PO Q4HR PRN; Protocol PRN Reason: Agitation Stop: 12/15/19 16:52 Multivitamins/Vitamin C (Theragran) 1 tab PO DAILY [facility] Stop: 12/16/19 08:59 Last Admin: 10/21/19 10:00 Dose: Not Given Ondansetron HCl (Zofran Odt) 4 mg PO Q4H PRN PRN Reason: Nausea / Vomiting Stop: 12/14/19 16:39 Last Admin: 10/21/19 08:27 Dose: 4 mg Oxybutynin Chloride (Ditropan Xl) 15 mg PO BID [facility] Stop: 12/11/19 16:59 Last Admin: 10/21/19 10:00 Dose: Not Given HEENT: NC/AT Neck: Supple Lungs: CTAB Cardiovascular: RRR, Normal S1, Normal S2 Abdomen: soft, non-tender Extremities: clear Neurological: no change Internal Medicine Assmt/Plan - Assessment Assessment: 1. Nausea/vomiting 2. DM/HTN - Plan Plan: stat labs cbc, cmp continue supportive care continue blood sugar checks continue BP checks reviewed medical records and d/w r.n. Nutritional Asmnt/Malnutr-PDOC - Dietary Evaluation Malnutrition Findings (Please click <Entered> for more info): Nutritional Asmnt/Malnutrition Start: 10/16/19 15: 51 Text: Status: Complete Freq: Protocol: Document 10/16/19 15:52 DEBORAH (Rec: 10/16/19 15:56 DEBORAH [id number]) Nutritional Asmnt/Malnutrition Patient General Information Nutritional Screening Moderate Risk Diagnosis Psychosis Pertinent Medical Hx/Surgical Hx HTN, DM Subjective Information Pt is a 59-year-old female admitted from home (living with family) on 10/11 d/t suicidal ideations. Pt is eating an estimated 33% of meals since admit date (x4 days) Per Meal/Nutrition Activity Record. Dietary is currently providing an estimated 1900 kcals and 110 gm Pro, per Pt PO intake this is providing an estimated 630 kcals and 36gm Pro to meet 53% kcal and 72% Pro needs- inadequate. Pt has noted refusal of medications and food, will continue to monitor PO intake. Visited pt around 3:30pm, pt was awake in room. When asked about her appetite she stated she was having nausea and stomach pain before , but now she is OK. I let her know ideally, she could lose some weight, but we want it to just be gradual to keep her healthy and she agreed. Pt stated since she was feeling better she would like to eat as she did not eat her lunch today. I got her a late lunch tray and explained I would be recommending a multivitamin for her, she stated she would take it when it came with her medications. Recommend adding multivitamin to medication regimen d/t chronic lack of nutrient dense food consumption contributing to morbid obesity. Spoke with pt nurse Shakira regarding recommendation. Anthropometrics HT: 5 Ft WT: 245 LB (110 kg) ABW: 136 LB (61.93 kg) BMI: 47.90 (Obese, class III) GI/ Skin Integrity GI: WNL, Soft, Non-tender BM: 10/12 x1 I/O: 1000/Not Noted Skin: WNL, Intact Enrique: 17 Diet Order: Cardiac Estimated Energy Needs: (Obese , ABW) 3685-8692 kcals (20-25 kcals/ kg) 50-60g Pro (0.8-1.0 g/kg) 0963-2189 ml (20-25 ml/kg) Current Diet Order/ Nutrition Support Cardiac Pertinent Medications Zofran Odt (PRN) Pertinent Labs 10/11: Glucose 126, 116 Nutritional Hx/Data Height 1.52 m Height (Calculated Centimeters) 152.4 Current Weight (lbs) 111.13 kg Weight (Calculated Kilograms) 111.1 Weight (Calculated Grams) 376497.1 [place] Body Weight 100 LB (45.45 kg) % [place] Body Weight 245 Body Mass Index (BMI) 47.8 Weight Status Morbidly Obese GI Symptoms Last BM 10/12 x1 Skin Integrity/Comment: Skin: WNL, Intact Enrique: 17 Current %PO Poor (25-49%) Estimated Nutritional Goals BEE in Kcals: Adj wt of IBW Calories/Kcals/Kg 20-25 Kcals Calculated 1270-2628 Protein: Adj wt of IBW Protein g/k.8-1.0 Protein Calculated 50-60 Fluid: ml 7369-3727 ml (20-25 ml/kg) Nutritional Problem 1. Problem Problem Obesity Etiology r/t consistent energy overconsumption Signs/Symptoms: aeb BMI >40 (47.09), Obese class III. Malnutrition Related to Morbid Obesity Malnutrition related to morbid obesity Weight 200% of ideal wt Query Text:(Any 1 Criteria met) Malnutrition related to morbid obesity Yes Intervention/Recommendation Comments 1.Continue Cardiac diet as tolerated. 2.Recommend adding multivitamin to medication regimen. Expected Outcomes/Goals Expected Outcomes/Goals 1.PO intake to meet 75% of estimated nutritional needs. 2.Gradual weight loss 90.5-1.0 Lb/week) trending toward IBW preferred. 3.Monitor PO intake, wt, nutrition related labs, and skin integrity. 4.F/U as low risk in 7-10 days , 10/22-10/25.
[2019-10-22] MEDS: INSULIN LISPRO SLIDING SCALE 100 UNITS/ML UNIT SUBQ SCH ×4 (06:31→20:32)
[2019-10-22] MEDS: Multivitamin Tab PO SCH (09:11)
[2019-10-22] MEDS: Oxybutynin Chloride 5 mg ER Tab PO SCH ×2 (09:11→17:15)
--- NOTE | 2019-10-22 21:28 | Progress Notes ---
DATE: 10/22/2019 PSYCHIATRIC PROGRESS NOTE SUBJECTIVE: Staff was spoken to. The patient is interviewed. Mood is noted to be irritable. Affect is constricted. Insight and judgment at this time are noted to be still impaired. Impulse control is noted to be limited. Coping skills are noted to be limited. The patient has been very paranoid and is refusing to comply with the medications. No side effects to the medications are noted. The patient has no place to go to, but the patient has been stating that she has [address] ASSESSMENT: The patient is still psychotic. PLAN: To continue the patient with the supportive therapy and followup. JOB# [id number]
[2019-10-23] MEDS: INSULIN LISPRO SLIDING SCALE 100 UNITS/ML UNIT SUBQ SCH ×3 (06:31→20:44)
[2019-10-23] MEDS: Multivitamin Tab PO SCH (08:59)
[2019-10-23] MEDS: Oxybutynin Chloride 5 mg ER Tab PO SCH ×2 (09:00→17:01)
[2019-10-23] MEDS ORDERED: Haloperidol Lactate 5 mg/mL 1mL Vial IM ONE (09:54)
--- NOTE | 2019-10-23 10:54 | Progress Notes ---
DATE: 10/22/2019 PSYCHOLOGY PROGRESS NOTE SUBJECTIVE: The patient is seen in her room and is interviewed. Case is discussed with staff. The patient continues to be somewhat dismissive, but not as irritable as the previous visit. Staff reports the patient's impulse control is improving. The patient continues to seem suspicious and is also refusing to comply with the medications. OBJECTIVE: Mood is irritable. Affect is constricted. Thought process shows to include paranoid ideation as well as some delusional content with grandiose characteristics. The patient denied any auditory or visual hallucinations. The patient has been withdrawn and continues to refuse medication. ASSESSMENT: The patient's psychosis persists. PLAN: The patient is participating with this short story writer in reality integration. However, the patient is still refusing medications. Therefore, we provided motivational enhancement and encouragement for the patient to accept the current treatment. We provided coping strategies for phase of life issues as well. We will follow up in 2-3 days if the patient remains on the unit and is able to benefit from psychology services. JOB# [id number] NICOLE
--- NOTE | 2019-10-23 12:42 | Progress Notes ---
DATE: 10/23/2019 PSYCHIATRIC PROGRESS NOTE SUBJECTIVE: Staff was spoken to. The patient is interviewed. Mood is noted to be irritable. Affect is constricted. The patient is refusing to take the Depakote. precision printing worker has been reported that able to secure a placement for this patient, possibly is going to be discharged tomorrow. No side effects to the medications are noted at this time. Insight and judgment are noted to be still impaired. Continues to be very paranoid. ASSESSMENT: The patient is still psychotic. PLAN: To continue the patient with the supportive therapy and use Haldol if she needs. JOB# [id number]
--- NOTE | 2019-10-23 15:54 | Internal Medicine Prog Note ---
Internal Medicine Subjective - Subjective Service Date: 10/23/19 Patient seen and examined:: without staff Patient is:: awake, verbal, interactive Per staff patient has:: no adverse event, no episodes of fall Internal Medicine Objective - Results Recent Labs: Laboratory Last Values POC Glucose 148 MG/DL (70 - 105) H 10/23/19 05:54 - Physical Exam Vitals and I&O: Vital Signs Temp 97.8 F 10/23/19 14:00 Pulse 84 10/23/19 14:00 Resp 18 10/23/19 14:00 BP 130/80 10/23/19 14:00 Pulse Ox 97 10/23/19 14:00 Intake & Output 10/22/19 10/23/19 10/23/19 18:59 06:59 18:59 Intake Total 1000 360 400 Balance 1000 360 400 Intake: Oral 1000 360 400 Other: # Voids 4 1 # Bowel Movements 1 Active Medications: Current Medications Aripiprazole (Abilify) 15 mg PO HS [facility]; Protocol Stop: 12/15/19 20:59 Last Admin: 10/22/19 20:32 Dose: Not Given Dextrose (Glutose 40%) 18.75 gm PO PRN PRN PRN Reason: BS Below 70 if tolerate po Stop: 12/17/19 15:29 Divalproex Sodium (Depakote Dr) 250 mg PO BID [facility]; Protocol Stop: 12/15/19 08:59 Last Admin: 10/23/19 09:35 Dose: Not Given Glucagon (Glucagen) 1 mg IM PRN PRN PRN Reason: BS Below 70 if not tolerate po Stop: 12/17/19 15:29 Ibuprofen (Motrin) 800 mg PO DAILY [facility] Stop: 12/16/19 08:59 Last Admin: 10/23/19 09:34 Dose: Not Given Insulin Human Lispro (Humalog Insulin Sliding Scale) 0 units SUBQ ACHS [facility]; Protocol Stop: 12/17/19 16:29 Last Admin: 10/23/19 06:31 Dose: Not Given Loratadine (Claritin) 5 mg PO BID [facility] Stop: 12/11/19 16:59 Last Admin: 10/23/19 09:00 Dose: 5 mg Lorazepam (Ativan) 0.5 mg PO Q4HR PRN; Protocol PRN Reason: Agitation Stop: 12/15/19 16:52 Multivitamins/Vitamin C (Theragran) 1 tab PO DAILY [facility] Stop: 12/16/19 08:59 Last Admin: 10/23/19 08:59 Dose: 1 tab Ondansetron HCl (Zofran Odt) 4 mg PO Q4H PRN PRN Reason: Nausea / Vomiting Stop: 12/14/19 16:39 Last Admin: 10/21/19 08:27 Dose: 4 mg Oxybutynin Chloride (Ditropan Xl) 15 mg PO BID [facility] Stop: 12/11/19 16:59 Last Admin: 10/23/19 09:00 Dose: 15 mg HEENT: NC/AT Neck: Supple Lungs: CTAB Cardiovascular: RRR, Normal S1, Normal S2 Abdomen: soft, non-tender Extremities: clear Neurological: no change Internal Medicine Assmt/Plan - Assessment Assessment: 1. DM Type 2 2. HTN - Plan Plan: continue supportive care continue blood sugar checks continue BP checks reviewed medical records and d/w r.n. Nutritional Asmnt/Malnutr-PDOC - Dietary Evaluation Malnutrition Findings (Please click <Entered> for more info): Nutritional Asmnt/Malnutrition Start: 10/16/19 15: 51 Text: Status: Complete Freq: Protocol: Document 10/16/19 15:52 DEBORAH (Rec: 10/16/19 15:56 DEBORAH [id number]) Nutritional Asmnt/Malnutrition Patient General Information Nutritional Screening Moderate Risk Diagnosis Psychosis Pertinent Medical Hx/Surgical Hx HTN, DM Subjective Information Pt is a 59-year-old female admitted from home (living with family) on 10/11 d/t suicidal ideations. Pt is eating an estimated 33% of meals since admit date (x4 days) Per Meal/Nutrition Activity Record. Dietary is currently providing an estimated 1900 kcals and 110 gm Pro, per Pt PO intake this is providing an estimated 630 kcals and 36gm Pro to meet 53% kcal and 72% Pro needs- inadequate. Pt has noted refusal of medications and food, will continue to monitor PO intake. Visited pt around 3:30pm, pt was awake in room. When asked about her appetite she stated she was having nausea and stomach pain before , but now she is OK. I let her know ideally, she could lose some weight, but we want it to just be gradual to keep her healthy and she agreed. Pt stated since she was feeling better she would like to eat as she did not eat her lunch today. I got her a late lunch tray and explained I would be recommending a multivitamin for her, she stated she would take it when it came with her medications. Recommend adding multivitamin to medication regimen d/t chronic lack of nutrient dense food consumption contributing to morbid obesity. Spoke with pt nurse Shakira regarding recommendation. Anthropometrics HT: 5 Ft WT: 245 LB (110 kg) ABW: 136 LB (61.93 kg) BMI: 47.90 (Obese, class III) GI/ Skin Integrity GI: WNL, Soft, Non-tender BM: 10/12 x1 I/O: 1000/Not Noted Skin: WNL, Intact Enrique: 17 Diet Order: Cardiac Estimated Energy Needs: (Obese , ABW) 1053-6217 kcals (20-25 kcals/ kg) 50-60g Pro (0.8-1.0 g/kg) 5171-9719 ml (20-25 ml/kg) Current Diet Order/ Nutrition Support Cardiac Pertinent Medications Zofran Odt (PRN) Pertinent Labs 10/11: Glucose 126, 116 Nutritional Hx/Data Height 1.52 m Height (Calculated Centimeters) 152.4 Current Weight (lbs) 111.13 kg Weight (Calculated Kilograms) 111.1 Weight (Calculated Grams) 303491.1 [place] Body Weight 100 LB (45.45 kg) % [place] Body Weight 245 Body Mass Index (BMI) 47.8 Weight Status Morbidly Obese GI Symptoms Last BM 10/12 x1 Skin Integrity/Comment: Skin: WNL, Intact Enrique: 17 Current %PO Poor (25-49%) Estimated Nutritional Goals BEE in Kcals: Adj wt of IBW Calories/Kcals/Kg 20-25 Kcals Calculated 8662-4701 Protein: Adj wt of IBW Protein g/k.8-1.0 Protein Calculated 50-60 Fluid: ml 1186-2592 ml (20-25 ml/kg) Nutritional Problem 1. Problem Problem Obesity Etiology r/t consistent energy overconsumption Signs/Symptoms: aeb BMI >40 (47.09), Obese class III. Malnutrition Related to Morbid Obesity Malnutrition related to morbid obesity Weight 200% of ideal wt Query Text:(Any 1 Criteria met) Malnutrition related to morbid obesity Yes Intervention/Recommendation Comments 1.Continue Cardiac diet as tolerated. 2.Recommend adding multivitamin to medication regimen. Expected Outcomes/Goals Expected Outcomes/Goals 1.PO intake to meet 75% of estimated nutritional needs. 2.Gradual weight loss 90.5-1.0 Lb/week) trending toward IBW preferred. 3.Monitor PO intake, wt, nutrition related labs, and skin integrity. 4.F/U as low risk in 7-10 days , 10/22-10/25.
[2019-10-24] MEDS: INSULIN LISPRO SLIDING SCALE 100 UNITS/ML UNIT SUBQ SCH ×4 (06:33→20:29)
[2019-10-24] MEDS: Oxybutynin Chloride 5 mg ER Tab PO SCH ×2 (09:00→17:06)
[2019-10-24] MEDS: Multivitamin Tab PO SCH (09:01)
--- NOTE | 2019-10-24 15:38 | Internal Medicine Prog Note ---
Internal Medicine Subjective - Subjective Service Date: 10/24/19 Patient is:: awake, verbal, interactive Per staff patient has:: no adverse event, no episodes of fall Internal Medicine Objective - Results Recent Labs: Laboratory Last Values POC Glucose 148 MG/DL (70 - 105) H 10/23/19 05:54 - Physical Exam Vitals and I&O: Vital Signs Temp 97.9 F 10/24/19 14:00 Pulse 102 10/24/19 14:00 Resp 20 10/24/19 14:00 BP 117/74 10/24/19 14:00 Pulse Ox 97 10/24/19 14:00 Intake & Output 10/23/19 10/24/19 10/24/19 18:59 06:59 18:59 Intake Total 650 240 Balance 650 240 Intake: Oral 650 240 Other: # Voids 3 # Bowel Movements 0 Stool Characteristics Soft Formed Brown Active Medications: Current Medications Aripiprazole (Abilify) 15 mg PO HS [facility]; Protocol Stop: 12/15/19 20:59 Last Admin: 10/23/19 20:44 Dose: Not Given Dextrose (Glutose 40%) 18.75 gm PO PRN PRN PRN Reason: BS Below 70 if tolerate po Stop: 12/17/19 15:29 Divalproex Sodium (Depakote Dr) 250 mg PO BID [facility]; Protocol Stop: 12/15/19 08:59 Last Admin: 10/24/19 10:34 Dose: Not Given Glucagon (Glucagen) 1 mg IM PRN PRN PRN Reason: BS Below 70 if not tolerate po Stop: 12/17/19 15:29 Ibuprofen (Motrin) 800 mg PO DAILY [facility] Stop: 12/16/19 08:59 Last Admin: 10/24/19 09:01 Dose: 800 mg Insulin Human Lispro (Humalog Insulin Sliding Scale) 0 units SUBQ ACHS [facility]; Protocol Stop: 12/17/19 16:29 Last Admin: 10/24/19 11:41 Dose: Not Given Loratadine (Claritin) 5 mg PO BID [facility] Stop: 12/11/19 16:59 Last Admin: 10/24/19 09:01 Dose: 5 mg Lorazepam (Ativan) 0.5 mg PO Q4HR PRN; Protocol PRN Reason: Agitation Stop: 12/15/19 16:52 Multivitamins/Vitamin C (Theragran) 1 tab PO DAILY [facility] Stop: 12/16/19 08:59 Last Admin: 10/24/19 09:01 Dose: 1 tab Ondansetron HCl (Zofran Odt) 4 mg PO Q4H PRN PRN Reason: Nausea / Vomiting Stop: 12/14/19 16:39 Last Admin: 10/21/19 08:27 Dose: 4 mg Oxybutynin Chloride (Ditropan Xl) 15 mg PO BID [facility] Stop: 12/11/19 16:59 Last Admin: 10/24/19 09:00 Dose: 15 mg HEENT: NC/AT Neck: Supple Lungs: CTAB Cardiovascular: RRR, Normal S1, Normal S2 Abdomen: soft, non-tender Extremities: clear Neurological: no change Internal Medicine Assmt/Plan - Assessment Assessment: 1. DM Type 2 2. HTN - Plan Plan: continue supportive care reviewed blood sugar diary continue BP checks reviewed medical records and d/w r.n. Nutritional Asmnt/Malnutr-PDOC - Dietary Evaluation Malnutrition Findings (Please click <Entered> for more info): Nutritional Asmnt/Malnutrition Start: 10/16/19 15: 51 Text: Status: Complete Freq: Protocol: Document 10/16/19 15:52 DEBORAH (Rec: 10/16/19 15:56 DEBORAH [id number]) Nutritional Asmnt/Malnutrition Patient General Information Nutritional Screening Moderate Risk Diagnosis Psychosis Pertinent Medical Hx/Surgical Hx HTN, DM Subjective Information Pt is a 59-year-old female admitted from home (living with family) on 10/11 d/t suicidal ideations. Pt is eating an estimated 33% of meals since admit date (x4 days) Per Meal/Nutrition Activity Record. Dietary is currently providing an estimated 1900 kcals and 110 gm Pro, per Pt PO intake this is providing an estimated 630 kcals and 36gm Pro to meet 53% kcal and 72% Pro needs- inadequate. Pt has noted refusal of medications and food, will continue to monitor PO intake. Visited pt around 3:30pm, pt was awake in room. When asked about her appetite she stated she was having nausea and stomach pain before , but now she is OK. I let her know ideally, she could lose some weight, but we want it to just be gradual to keep her healthy and she agreed. Pt stated since she was feeling better she would like to eat as she did not eat her lunch today. I got her a late lunch tray and explained I would be recommending a multivitamin for her, she stated she would take it when it came with her medications. Recommend adding multivitamin to medication regimen d/t chronic lack of nutrient dense food consumption contributing to morbid obesity. Spoke with pt nurse Shakira regarding recommendation. Anthropometrics HT: 5 Ft WT: 245 LB (110 kg) ABW: 136 LB (61.93 kg) BMI: 47.90 (Obese, class III) GI/ Skin Integrity GI: WNL, Soft, Non-tender BM: 10/12 x1 I/O: 1000/Not Noted Skin: WNL, Intact Enrique: 17 Diet Order: Cardiac Estimated Energy Needs: (Obese , ABW) 3475-9177 kcals (20-25 kcals/ kg) 50-60g Pro (0.8-1.0 g/kg) 1621-6206 ml (20-25 ml/kg) Current Diet Order/ Nutrition Support Cardiac Pertinent Medications Zofran Odt (PRN) Pertinent Labs 10/11: Glucose 126, 116 Nutritional Hx/Data Height 1.52 m Height (Calculated Centimeters) 152.4 Current Weight (lbs) 111.13 kg Weight (Calculated Kilograms) 111.1 Weight (Calculated Grams) 025465.1 [place] Body Weight 100 LB (45.45 kg) % [place] [facility] Body Weight 245 Body Mass Index (BMI) 47.8 Weight Status Morbidly Obese GI Symptoms Last BM 10/12 x1 Skin Integrity/Comment: Skin: WNL, Intact Enrique: 17 Current %PO Poor (25-49%) Estimated Nutritional Goals BEE in Kcals: Adj wt of IBW Calories/Kcals/Kg 20-25 Kcals Calculated 5859-0404 Protein: Adj wt of IBW Protein g/k.8-1.0 Protein Calculated 50-60 Fluid: ml 7104-3621 ml (20-25 ml/kg) Nutritional Problem 1. Problem Problem Obesity Etiology r/t consistent energy overconsumption Signs/Symptoms: aeb BMI >40 (47.09), Obese class III. Malnutrition Related to Morbid Obesity Malnutrition related to morbid obesity Weight 200% of ideal wt Query Text:(Any 1 Criteria met) Malnutrition related to morbid obesity Yes Intervention/Recommendation Comments 1.Continue Cardiac diet as tolerated. 2.Recommend adding multivitamin to medication regimen. Expected Outcomes/Goals Expected Outcomes/Goals 1.PO intake to meet 75% of estimated nutritional needs. 2.Gradual weight loss 90.5-1.0 Lb/week) trending toward IBW preferred. 3.Monitor PO intake, wt, nutrition related labs, and skin integrity. 4.F/U as low risk in 7-10 days , 10/22-10/25.
--- NOTE | 2019-10-24 19:09 | Progress Notes ---
DATE: 10/24/2019 PSYCHOLOGY PROGRESS NOTE SUBJECTIVE: The patient is seen in her room. Case is discussed with staff. The patient states that she is feeling nauseous and has been vomiting all morning. Staff reports the patient is refusing to take any medications. There is a possibility of malingering, i.e., the patient is using somatic concerns or complaints to continue to refuse medication. The patient has a history of this type of manipulation. Staff reports that the patient's placement may come through today and therefore, the patient will be discharged tomorrow. OBJECTIVE: Mood is mildly irritable. Affect is constricted. Thought process includes delusional content. The patient denied any suicidal ideation, plan or intention. She denied any hallucinations. Paranoid ideation is present. The patient continues to refuse some of her medication. The patient is withdrawn and isolative. ASSESSMENT: The patient's paranoia continues to persist. PLAN: We provided reality orientation, differentiation and integration. We provided remotivation for the patient to become compliant and to stay compliant with all aspects of her care and treatment. We provided coping strategies for phase of life issues as well as for chronic severe mental illness. We will continue to encourage the patient to follow through with medical providers and nursing staff and to accept treatment. No followup is indicated at this time unless the patient is still admitted on the unit during the next visit. JOB# [id number] NICOLE
--- NOTE | 2019-10-24 22:44 | Progress Notes ---
DATE: 10/24/2019 SUBJECTIVE: Staff was spoken to. The patient is interviewed. Mood is noted to be irritable. Affect is constricted. The patient continues to be paranoid, but denies any command hallucinations. Insight and judgment at this time are noted to be improving. Impulse control seems to be fair. No side effects to the medications are noted. manager water wastewater and social media intern services have been reporting that they have been able to look for placement for this patient, possibly the patient is going to be discharged tomorrow. JOB# [id number]
[2019-10-25] MEDS: INSULIN LISPRO SLIDING SCALE 100 UNITS/ML UNIT SUBQ SCH ×2 (07:20→11:47)
[2019-10-25] MEDS: Multivitamin Tab PO SCH (09:42)
[2019-10-25] MEDS: Oxybutynin Chloride 5 mg ER Tab PO SCH (09:42)
--- NOTE | 2019-10-25 09:44 | Discharge Summary ---
DATE OF DISCHARGE: 10/25/2019 IDENTIFYING DATA: The patient is a 59-year-old woman living by herself. Information obtained by directly interviewing the patient as well as reviewing the admission papers. JUSTIFICATION OF HOSPITALIZATION: The patient is admitted on 5150 for being gravely disabled. CHIEF COMPLAINT: "I don't like here. I don't need to be in here." DIAGNOSES AT THE TIME OF ADMISSION: AXIS I: Bipolar disorder, mixed, with psychotic symptoms, rule out schizoaffective disorder. AXIS II: None. AXIS III: As per Dr. Dumont. HOSPITAL COURSE AND RESPONSE TO TREATMENT: The patient has been observed on inpatient unit, provided with supportive psychotherapy. The patient has been encouraged to participate in the groups and verbalize the concerns. The patient has been continued on aripiprazole that was given up to 15 mg at bedtime. The patient has been requested to be on the ____ acid for her mood swings, but the patient refused. The patient has been closely monitored and was noted to be doing fairly well. The patient was finally discharged on 10/25/2019 with recommendation that she is going to be seeking treatment on an outpatient basis. MENTAL STATUS EXAMINATION: At the time of discharge noted to be stable. The patient is not noted to be a danger to self or others, but the patient continues to be paranoid. DIAGNOSES AT THE TIME OF ____: AXIS I: Schizoaffective disorder. AXIS II: None. AXIS III: As per Dr. Dumont. AFTERCARE PLAN: The patient is discharged to [facility] to be followed up on an outpatient basis. PROGNOSIS: At the time of discharge is noted to be fair with the treatment. JOB# [id number]
== END 2019-10-25 14:13 | DRG 885 ==
LOC: GERO 10-12 12:22
PROVIDERS: ADMIT Psychiatry & Neurology Psychiatry; ATTEND Psychiatry & Neurology Psychiatry
DX: F25.9 Schizoaffective disorder, unspecified (principal); R45.851 Suicidal ideations; I10 Essential (primary) hypertension; E11.9 Type 2 diabetes mellitus without complications; Z79.899 Other long term (current) drug therapy
CPT/HCPCS: 82948-90; 83036-90; J1200; J1630; Q0162